=== PATIENT | female | born 1960 | race Caucasian/White ===

== ENCOUNTER → 2023-07-18 14:01 | Outpatient (REF) | payer OTHER, SELFPAY | LOC: HWRAD 14:01 | PROVIDERS: ATTENDING PHYSICIAN Ophthalmology Ophthalmic Plastic and Reconstructive Surgery; FAMILY PHYSICIAN Family Medicine | DX: D31.62 Benign neoplasm of unspecified site of left orbit (principal) | CPT/HCPCS: 70482; Q9967 ==

== ENCOUNTER → 2023-12-06 09:15 | Outpatient (REF) | payer OTHER, SELFPAY | LOC: HWWDC 09:15 | PROVIDERS: ATTENDING PHYSICIAN Nurse Practitioner; FAMILY PHYSICIAN Family Medicine | DX: Z12.31 Encounter for screening mammogram for malignant neoplasm of breast (principal) | CPT/HCPCS: 77063; 77067 ==

== ENCOUNTER → 2024-02-22 08:40 | Outpatient (REF) | payer OTHER, SELFPAY | LOC: HWRAD 08:40 | PROVIDERS: ATTENDING PHYSICIAN Ophthalmology; FAMILY PHYSICIAN Family Medicine | DX: D49.2 Neoplasm of unspecified behavior of bone, soft tissue, and skin (principal) | CPT/HCPCS: 70480 ==

== ENCOUNTER → 2024-03-06 08:06 | Outpatient (REF) | payer OTHER, SELFPAY | LOC: HWRCS 08:06 | PROVIDERS: ATTENDING PHYSICIAN Nurse Practitioner; FAMILY PHYSICIAN Family Medicine | DX: I44.4 Left anterior fascicular block (principal) | CPT/HCPCS: 93306 ==

== ENCOUNTER → 2024-12-27 08:21 | Outpatient (REF) | payer MEDICARE, SELFPAY | LOC: HWRAD 08:21 | PROVIDERS: ATTENDING PHYSICIAN Ophthalmology; FAMILY PHYSICIAN Family Medicine | DX: H04.209 Unspecified epiphora, unspecified side (principal); D49.2 Neoplasm of unspecified behavior of bone, soft tissue, and skin | CPT/HCPCS: 70480 ==